=== PATIENT | male | born 1950 | race American Indian/Alaskan Native ===

== ENCOUNTER 2016-09-13 19:08 | Emergency (ER) | payer MEDICARE, MEDICAID ==
[2016-09-13] MEDS ORDERED: MORPHINE IV ONE (20:00)
[2016-09-13] MEDS ORDERED: NACL 0.9% 500 ML 500 ML IV ONE (20:00)
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
[2016-09-13 20:29] LABS: Hematocrit 39.4 % (35.5-45.6); Hemoglobin 13.1 gm/dl (11.8-15.2); Mean Corpuscular HGB Conc 33 % (32-34); Mean Corpuscular Hemoglobin 27 pg (28-32); Mean Corpuscular Volume 82 fl (84-94); Platelet Count 188 K/mm3 (140-440); Red Cell Distribution Width 15.5 % (13.2-15.2); White Blood Count 3.4 K/mm3 (4.5-11.0)
[2016-09-13 20:49] LABS: Alanine Aminotransferase 13 units/L (7-56); Albumin 3.9 g/dL (3.9-5); Alkaline Phosphatase 149 units/L (35-129); Anion Gap 17 mmol/L; BUN/Creatinine Ratio 13.33; Bilirubin,Total 0.2 mg/dL (0.1-1.2); Blood Urea Nitrogen 12 mg/dL (9-20); Calcium 9.1 mg/dL (8.4-10.2); Carbon Dioxide 25 mmol/L (22-30); Chloride 104.5 mmol/L (98-107); Glucose 95 mg/dL (75-100); Sodium 142 mmol/L (137-145); Total Protein 7.9 g/dL (6.3-8.2)
[2016-09-13 20:55] LABS: Bacteria,Urine 2+ /HPF (Negative); Bilirubin,Urine NEG (Negative); Blood,Urine MOD (Negative); Ketones,Urine NEG (Negative); Leukocyte Esterase,Urine LG (Negative); Mucus,Urine FEW /HPF; Nitrite,Urine POS (Negative); Urobilinogen,Urine < 2.0 mg/dL (<2.0)
[2016-09-13 20:58] LABS: RBC,Urine > 182.0 /HPF (0.0-6.0)
[2016-09-13] MEDS ORDERED: LEVAQUIN 750MG/150ML 750 MG/150 ML BAG IV ONE (21:03)
[2016-09-13 21:07] LABS: Blastocytes % (Manual) 0 %
[2016-09-13 21:08] LABS: Anisocytosis 1+; Basophils % (Manual) 0 % (0.0-1.8); Microcytosis Few
[2016-09-13 21:09] LABS: Diff Status Complete; Poikilocytosis Few
--- NOTE | 2016-09-13 21:53 | Ultrasound Report ---
FINAL REPORT PROCEDURE: US TESTICULAR DOPPLER COMP TECHNIQUE: Real-time box-scale and color flow Doppler sonography in multiple planes of the scrotum, testicles, and epididymes was performed. Velocity spectral waveform analysis Doppler imaging of the arterial inflow and venous outflow of the testicles was performed with image documentation. CPT 20530 and 24691 HISTORY: groin and testicular pain COMPARISON: No prior studies are available for comparison. FINDINGS: RIGHT TESTICLE: Size: 3.3 x 2.3 x 2.9 cm . Appearance: Normal size and echotexture . Arterial blood flow: Normal spectral waveforms, flow velocities and color flow images.. Venous blood flow: Normal spectral waveforms and color flow images. Right epididymis: Normal size and echotexture . Hydrocele: None . LEFT TESTICLE Size: 3.6 x 1.9 x 2.5 cm . Appearance: Normal size and echotexture . Arterial blood flow: Normal spectral waveforms, flow velocities and color flow images.. Venous blood flow: Normal spectral waveforms and color flow images. Leftepididymis: Normal size and echotexture . Hydrocele: None . IMPRESSION: Unremarkable testicular study
[2016-09-13 23:20] VITALS: BP 125/90
[2016-09-13] MEDS ORDERED: MORPHINE ONE (23:27)
== END 2016-09-14 00:56 | disposition other institution (70) ==
LOC: ED 19:08
DX: N30.01 Acute cystitis with hematuria (principal); R10.30 Lower abdominal pain, unspecified; K21.9 Gastro-esophageal reflux disease without esophagitis; F32.9 Major depressive disorder, single episode, unspecified
CPT/HCPCS: 36415; 80053; 81001; 82140; 85007; 85025; 87086; 93975; 96361; 96365; 96366; 96375; 99284; J1956; J2270; J7040; 96374

== ENCOUNTER 2017-01-01 09:11 | Day surgery (SDC) | payer MEDICAID, MEDICARE ==
[~2017-01-01 09:11] MED LIST: ANCEF/STERILE WATER 2 GM/20 ML 2 GM/20 ML SYRINGE IV NR; NACL 0.9% 1000 ML 1,000 ML IV SCH
[2017-01-01 11:00] LABS: Basophils % (Auto) 0.8 % (0.0-1.8); Eosinophils % (Auto) 2.5 % (0.0-4.3); Hematocrit 41.2 % (35.5-45.6); Hemoglobin 13.3 gm/dl (11.8-15.2); Mean Corpuscular HGB Conc 32 % (32-34); Mean Corpuscular Hemoglobin 28 pg (28-32); Mean Corpuscular Volume 85 fl (84-94); Platelet Count 154 K/mm3 (140-440); Red Blood Count 4.83 M/mm3 (3.65-5.03); Red Cell Distribution Width 15.8 % (13.2-15.2); White Blood Count 4.9 K/mm3 (4.5-11.0)
[2017-01-01 11:17] LABS: Anion Gap 15 mmol/L; Blood Urea Nitrogen 10 mg/dL (9-20); Calcium 9.1 mg/dL (8.4-10.2); Carbon Dioxide 28 mmol/L (22-30); Chloride 106.5 mmol/L (98-107); Glucose 83 mg/dL (75-100); Potassium 4.2 mmol/L (3.6-5.0); Sodium 145 mmol/L (137-145)
[2017-01-01 11:21] LABS: INR 2.52 (0.87-1.13)
[2017-01-01 11:22] LABS: Partial Thromboplastin Time 48.5 Sec. (24.2-36.6)
[2017-01-01] MEDS ORDERED: HEPARIN 10,000 UNITS/10 ML ONE (14:50)
[2017-01-01] MEDS ORDERED: XYLOCAINE 2% INFILTRATI ONE (14:50)
[2017-01-01] MEDS ORDERED: ANCEF/STERILE WATER 2 GM/20 ML 2 GM/20 ML SYRINGE IV ONE (14:50)
[2017-01-01] MEDS ORDERED: SUBLIMAZE ONE (14:50)
[2017-01-01] MEDS ORDERED: HEPARIN/NS 5000 UNIT/500ML(CATH LAB) 1,000 ML IR ONE (14:50)
[2017-01-01] MEDS ORDERED: NACL 0.9% 250ML 250 ML ONE (14:50)
[2017-01-01] MEDS ORDERED: VERSED ONE (14:50)
[2017-01-01] MEDS ORDERED: NITROGLYCERIN SYRINGE 6 ML ONE (15:25)
--- NOTE | 2017-01-01 15:52 | Short Stay Summary ---
Short Stay Documentation Date of service: 01/01/17 Narrative H&P: See H&P - History H&P: obtained from office - Allergies and Medications Current Medications: Allergies metoclopramide Allergy (Verified 09/13/16 19:35) Unknown metoclopramide HCl [From Reglan] Allergy (Verified 09/13/16 19:35) Unknown Sulfa (Sulfonamide Antibiotics) Allergy (Verified 09/13/16 19:35) Unknown Home Medications Medication Instructions Recorded Confirmed Last Taken Type Baclofen [Baclofen] 10 mg PO TID 01/01/17 01/01/17 12/31/16 History 10mg Diazepam Tab [Valium] 5 mg PO QHS PRN 01/01/17 01/01/17 Unknown History Docusate Sodium [Colace CAP] 2 cap PO BID 01/01/17 01/01/17 Unknown History FLUoxetine [PROzac] 20 mg PO DAILY 01/01/17 01/01/17 12/31/16 History 20mg LORazepam [Ativan] 1 tab PO DAILY PRN 01/01/17 01/01/17 Unknown History Magnesium Hydroxide [Milk of 30 ml PO HS PRN 01/01/17 01/01/17 Unknown History Magnesia] Multivitamin Tab [Multiple Vitamin 1 tab PO DAILY 01/01/17 01/01/17 12/31/16 History TAB (Theragran)] 1 tab Omeprazole Magnesium [PriLOSEC Otc] 20 mg PO DAILY 01/01/17 01/01/17 12/31/16 History 20mg Pregabalin [Lyrica] 300 mg PO Q12H 01/01/17 01/01/17 12/31/16 History 300mg Simvastatin [Zocor TAB] 20 mg PO DAILY 01/01/17 01/01/17 12/31/16 History 20mg Vit C/Ascorbate Ca/Ascorb Sod 500 mg PO BID 01/01/17 01/01/17 12/31/16 History 500mg fentaNYL [Fentanyl] 50 mcg TD Q72HR 01/01/17 01/01/17 Unknown History guaiFENesin [Robitussin] 10 ml PO PRN 01/01/17 01/01/17 Unknown History lamoTRIgine [LaMICtal] 50 mg PO HS 01/01/17 01/01/17 12/31/16 History 50mg levETIRAcetam [Keppra TAB] 500 mg PO Q12H 01/01/17 01/01/17 12/31/16 History oxyCODONE /ACETAMINOPHEN [Percocet 2 tab PO Q6H PRN 01/01/17 01/01/17 01/01/17 05:00 History 5/325 mg] 1 tab Active Medications Cefazolin Sodium (Ancef/Sterile Water 2 Gm/20 Ml) 2 gm in 20 mls @ 80 mls/hr IV PREOP NR PRN Reason: Protocol Stop: 01/01/17 23:59 Last Admin: 01/01/17 15:09 Dose: 20 mls Sodium Chloride (Nacl 0.9% 1000 Ml) 1,000 mls @ 42 mls/hr IV DIRECT CHRISTIAN - Brief post op/procedure progress note Date of procedure: 01/01/17 Pre-op diagnosis: PVD with Nonhealing Left Foot Ulcer Post-op diagnosis: same Procedure: 1. Ultrasound-Guided Access Right Common Femoral Artery 2. Ultrasound-Guided Access Right Femoral Vein (Patient with Difficult IV Access) 3. Diagnostic Aortogram with Left Lower Extremity Runoff (No Previous Films for Comparison) 4. Angioplasty of Left Posterior Tibial Artery with 2.5 x 150 Balloon 5. Angioplasty of Left Popliteal Artery with 5 x 60 Balloon 6. Closure of Right Femoral Arteriotomy with 6 Bruneian Angio-Seal 7. Radiologic Supervision with Interpretation Anesthesia: local, other (IV sedation) Surgeon: KARLA IBARRA Estimated blood loss: none Pathology: none Condition: stable - Disposition Condition at discharge: Good Disposition: [id number] [facility] C[facility] Short Stay Discharge Plan Activity: no restrictions Wound: remove dressing (48 hours) Follow up with: KARLA IBARRA MD [Staff Physician] - 14 Days
--- NOTE | 2017-01-01 16:13 | Operative Report ---
Operative Report Operative Report: Date of Procedure: 01/01/2017 Pre-operative Diagnosis: PVD with Nonhealing Left Foot Ulcer Post-operative Diagnosis: Same Procedure(s): 1. Ultrasound-Guided Access Right Common Femoral Artery 2. Ultrasound-Guided Access Right Greater Saphenous (Patient with Difficult IV Access) 3. Diagnostic Aortogram with Left Lower Extremity Runoff (No Previous Films for Comparison) 4. Angioplasty of Left Posterior Tibial Artery with 2.5 x 150 Balloon 5. Angioplasty of Left Popliteal Artery with 5 x 60 Balloon 6. Closure of Right Femoral Arteriotomy with 6 Kyrgyz Angio-Seal 7. Radiologic Supervision with Interpretation Surgeon: Alok Grover M.D. Lithograph Press Operator: Demetrice Anesthesia: Local and IV sedation EBL: Minimal Counts: Correct Complications: None Condition: Stable Specimen: None Indication: The patient is a 66-year-old male with history of peripheral vascular disease and a wound that has been on his medial ankle for approximately year without healing. On physical exam he had diminished pulses with a duplex that demonstrated diminished flow so was felt that he would benefit from a diagnostic arteriogram with possible intervention. He was given the risk, benefits, and alternative procedures and consented to procedure. Angiographic Findings: The aortogram demonstrated aorta was widely patent and bilateral common iliac artery is widely patent. The left partially arteriogram demonstrated that the hypogastric and the external iliac arteries were obtained. Common femoral artery, profunda artery, and superficial femoral arteries were all widely patent. The patient had approximately 50% stenosis of the popliteal artery in the midportion of the artery just behind the knee. The patient had three- vessel runoff with anterior tibial artery and peroneal artery widely patent. The posterior tibial artery was diffusely diseased with a possibly 50% stenosis throughout its course. After intervention the popliteal artery was widely patent as well as a widely patent posterior tibial artery with brisk flow of contrast into the foot. Description of Procedure: The patient was brought to the screedman/laborer and laid in supine position. After his right groin was prepped and draped in normal sterile fashion ultrasound was used to identify the right femoral vein. The overlying skin and soft tissue was anesthetized with lidocaine. A micropuncture needles used ultrasound guidance accessed the vein however the wire would not advance so I accessed the greater saphenous vein was able to advance the wire through collateral. I advanced a micropuncture sheath and performed a venogram that demonstrated that the central venous system was completely occluded. I placed a 4 Kyrgyz sheath for venous access by Seldinger technique. I then used ultrasound guidance and micropuncture technique to access the right common femoral artery. A 0.035 Bentson wire was advanced to the aorta and a 6 Kyrgyz sheath was placed by Seldinger technique. An Omni Flush catheter was advanced into the aorta and aortogram performed. The Bentson wire and Omni Flush catheter were advanced up and over the bifurcation and the left lower extremity arteriogram was performed previously described findings. The Bentson wire was advanced through the anterior tibial artery and then a 6 Kyrgyz 90 cm destination sheath was placed by Seldinger technique. At this point the patient was systemically heparinized with 3000 units heparin IV. Advanced vertebral catheter and cannulated the posterior tibial artery with a 0.018 V18 wire. I performed balloon angioplasty of the entire posterior tibial artery with a 2.5 x 150 balloon. The result was a widely patent artery with a small area of spasm that was able to be broken with nitroglycerin. I then performed balloon angioplasty of the popliteal artery with a 5 x 60 balloon. The result was a widely patent artery with no residual stenosis. Sheath was then pulled back into the right external iliac artery and a 0.035 Bentson wire was advanced to the aorta. A 6 Kyrgyz sheath was then used to close the right femoral arteriotomy. The patient tolerated the procedure well. All sponge, needle, and estimate counts were correct. The patient was taken to the recovery area in stable condition.
[2017-01-01] MEDS ORDERED: PERCOCET 5/325 ONE (16:45)
[2017-01-01] MEDS ORDERED: PERCOCET 5/325 PO ONE (16:45)
[2017-01-01 19:00] VITALS: BP 123/70
== END 2017-01-01 18:30 ==
LOC: OPU 09:11
PROVIDERS: ATTEND Surgery Vascular Surgery
DX: I70.244 Atherosclerosis of native arteries of left leg with ulceration of heel and midfoot (principal); K21.9 Gastro-esophageal reflux disease without esophagitis; F32.9 Major depressive disorder, single episode, unspecified; F06.4 Anxiety disorder due to known physiological condition; E78.4 Other hyperlipidemia; E56.9 Vitamin deficiency, unspecified; I10 Essential (primary) hypertension; G83.4 Cauda equina syndrome; F17.200 Nicotine dependence, unspecified, uncomplicated; Z88.8 Allergy status to other drugs, medicaments and biological substances; Z88.2 Allergy status to sulfonamides; Z79.01 Long term (current) use of anticoagulants; Z79.899 Other long term (current) drug therapy
CPT/HCPCS: 36415; 37224; 37228; 75625; 75710; 80048; 85025; 85610; 85730; C1725; C1760; C1769; C1887; C1894; J0690; J1644; J2250; J3010; J7050; Q9967